=== PATIENT | male | born 1945 | race Two or more races ===

== ENCOUNTER 2020-08-20 19:12 | Emergency (ER) | payer OTHER ==
[~2020-08-20] VITALS: Ht 167.6 cm; Wt 45.5 kg
[2020-08-20] MEDS ORDERED: SODIUM CHLORIDE 0.9% 1,000 ML IV ONE (19:45)
[2020-08-20 20:15] LABS: HEMATOCRIT 34.3 % (41-53); HEMOGLOBIN 11.9 g/dL (13.5-17.5); MEAN CORPUSCULAR HEMOGLOBIN 35.2 pg (26.0-34.0); MEAN CORPUSCULAR HGB CONC 34.8 G/dL (31.0-37.0); MEAN CORPUSCULAR VOLUME 101 fL (80-100); PLATELET COUNT (AUTO) 182 K/uL (150-450); RED BLOOD CELL COUNT(AUTO) 3.39 MIL/uL (4.50-5.90); RED CELL DISTRIBUTION WIDTH 15.6 % (11.5-14.5)
[2020-08-20 20:25] LABS: ALBUMIN 2.5 g/dL (3.4-5.0); BILIRUBIN,TOTAL 0.6 mg/dL (0.1-1.0); CALCIUM, TOTAL 8.9 mg/dL (8.8-10.5); CREATININE 2.57 mg/dL (0.60-1.30); TOTAL PROTEIN, SERUM 8.2 g/dL (6.4-8.2)
[2020-08-20 20:38] LABS: POTASSIUM 2.5 mmol/L (3.5-5.1)
[2020-08-20] MEDS ORDERED: POTASSIUM CHL 10 MEQ/WATER 50 ML IV SCH (20:45)
[2020-08-20 20:51] LABS: MAGNESIUM 3.1 mg/dL (1.80-2.40)
[2020-08-20 21:21] LABS: BAND NEUTROPHILS % (MANUAL) 19 % (0-5); LYMPHOCYTES % (MANUAL) 10 % (22-44); MONOCYTES % (MANUAL) 4 % (2-9); SEGMENTED NEUTROPHILS % 67 % (40-70)
[2020-08-20 21:56] LABS: COVID AG,FIA SOURCE NASOPHARYNGEAL
[2020-08-20] MEDS ORDERED: DOXYCYCLINE HYCLATE 100 MG in DEXTROSE 5%-WATER 100 ML IV ONE (22:00)
[2020-08-20] MEDS ORDERED: CefTRIAXone 1 GM/DEXTROSE 50 ML IV ONE (22:00)
[2020-08-20] MEDS ORDERED: SODIUM CHLORIDE 0.9% 250 ML IV ONE (22:15)
[2020-08-20] MEDS ORDERED: MAGNESIUM SULFATE 2 GM/WATER 50 ML IV PRN (22:45)
[2020-08-20] MEDS ORDERED: POTASSIUM CHLORIDE 20 MEQ ER TABLET PO PRN (22:45)
[2020-08-20] MEDS ORDERED: MAGNESIUM SULFATE 4 GM/WATER 100 ML IV PRN (22:45)
[2020-08-20] MEDS ORDERED: 0.9% SODIUM CHLORIDE 10 ML SYRINGE IVP PRN (22:45)
[2020-08-20] MEDS ORDERED: FAMOTIDINE 10 MG/ML 2 ML VIAL IVP SCH (22:45)
[2020-08-20] MEDS ORDERED: POTASSIUM CHL 10 MEQ/WATER 50 ML IV PRN (22:45)
[2020-08-20] MEDS ORDERED: SODIUM CHLORIDE 0.45% 1,000 ML IV ONE (22:45)
[2020-08-20] MEDS ORDERED: ACETAMINOPHEN 325 MG TABLET PO PRN (22:45)
[2020-08-20] MEDS ORDERED: ONDANSETRON HCL 4 MG/2 ML VIAL IVP PRN (22:45)
[2020-08-20] MEDS ORDERED: MAGNESIUM OXIDE 400 MG TABLET PO PRN (22:45)
[2020-08-20] MEDS ORDERED: LORazepam 2 MG/ML VIAL IVP PRN (23:00)
[2020-08-20] MEDS ORDERED: MORPHINE SULFATE 10 MG/5 ML SOLUTION UDCUP SL PRN (23:00)
[2020-08-20] MEDS ORDERED: AZITHROMYCIN 500 MG/NS 250 ML IV SCH (23:00)
[2020-08-20 23:09] LABS: APPEARANCE,URINE TURBID (CLEAR); GLUCOSE, URINE (UA) NEGATIVE (NEGATIVE); KETONES,URINE NEGATIVE (NEGATIVE); LEUKOCYTE ESTERASE ,URINE NEGATIVE (NEGATIVE); NITRATE,URINE NEGATIVE (NEGATIVE); OCCULT BLOOD,URINE NEGATIVE (NEGATIVE); PROTEIN,URINE SEE CONFIRM (NEGATIVE)
[2020-08-20 23:13] LABS: BILIRUBIN,URINE PRELIM. POSITIVE (NEGATIVE)
[2020-08-20] MEDS ORDERED: ATROPINE SULFATE 1% 5 ML OPHTHALMIC SOLUTION SL PRN (23:15)
[2020-08-20 23:26] LABS: FREE T4 (FREE THYROXINE) 0.25 ng/dL (0.76-1.46); THYROID STIMULATING HORMONE 91.47 uIU/mL (0.36-3.74)
[2020-08-20 23:26] LABS: SULFOSALICYLIC ACID,URINE 4+ (Negative)
[2020-08-20 23:27] LABS: RBC,URINE None Seen /HPF (0-2); WBC,URINE 0-2 /HPF (0-5)
[2020-08-20 23:27] LABS: LACTIC ACID 3.8 mmol/L (0.4-2.0)
[2020-08-20 23:28] LABS: AMORPHOUS SEDIMENT,UR Moderate /LPF (None Seen); BACTERIA,URINE None Seen /HPF (None Seen); SQUAMOUS EPITHELIAL CELL,UR Rare /LPF (None Seen)
[2020-08-21 01:30] VITALS: BP 83/58
[2020-08-21 02:15] LABS: CREATININE 2.58 mg/dL (0.60-1.30); POTASSIUM 5.1 mmol/L (3.5-5.1)
[2020-08-21 02:30] LABS: LACTIC ACID 4.2 mmol/L (0.4-2.0)
[2020-08-21] MEDS ORDERED: CefTRIAXone 1 GM/DEXTROSE 50 ML IV SCH (23:00)
== END 2020-08-21 05:06 | disposition expired ==
LOC: EDBD 19:15 → EMS 19:15
DX: J18.9 Pneumonia, unspecified organism (principal); N17.9 Acute kidney failure, unspecified; E86.0 Dehydration; E87.6 Hypokalemia; R79.89 Other specified abnormal findings of blood chemistry; F32.9 Major depressive disorder, single episode, unspecified; Z20.828 Contact with and (suspected) exposure to other viral communicable diseases
CPT/HCPCS: 36415; 71045; 80048; 80053; 81001; 83605; 83735; 83880; 84134; 84439; 84443; 84484; 85025; 87040; 87426; 93005; 96361; 96365; 99291; J3480; J7030; U0003; J3490; J7060